=== PATIENT | male | born 1990 | race Caucasian/White ===

== ENCOUNTER 2024-06-01 15:06 | Emergency (ER) | payer OTHER ==
[~2024-06-01] VITALS: Ht 172.7 cm; Wt 74.8 kg
[2024-06-01 15:09] VITALS: BP 145/86; PULSE 74; RESP 17; TEMP 97.5; O2SAT 98
== END 2024-06-01 15:39 | disposition home or self-care (01) ==
LOC: EDBD 15:06 → MED 15:06
DX: E10.9 Type 1 diabetes mellitus without complications (principal); I10 Essential (primary) hypertension; Z86.39 Personal history of other endocrine, nutritional and metabolic disease
CPT/HCPCS: 82948; 99283